=== PATIENT | female | born 1970 | race Caucasian/White ===

== ENCOUNTER 2019-02-28 22:34 | Inpatient (IN) | payer MEDICAID ==
[~2019-02-28] VITALS: Ht 165.1 cm; Wt 49.5 kg
[2019-02-28 22:38] VITALS: Ht 165.1 cm; Wt 49.5 kg
--- NOTE | 2019-02-28 22:57 | NUR ---
PATIENT PRESENTS TO THE ED WITH C/O OF ABDOMINAL PAIN THAT STARTED ABOUT 3 HOURS AGO. PATIENT IS A/O AND STATES SHE HAS BEEN CONSTIPATED UNTIL NOW. PATIENT HAS HAD VOMITING SINCE PAIN STARTED AND CLAIMS SHE HAS A HX OF PANCREATITUS. PATIENT DENIES ALCOHOL CONSUMPTION. BREATHING EVEN AND UNLABORED. PT PLACED ON MONITORS FOR FUTHER EVALUTION.
--- NOTE | 2019-02-28 23:28 | NUR ---
MEDICATED PER MD ORDERS. LAB AND XRAY BEDSIDE.
[2019-02-28 23:38] LABS: PLATELET COUNT 355 x10^3mcL (130-400); RED CELL DISTRIBUTION WIDTH 13.5 % (11.5-14.5)
--- NOTE | 2019-02-28 23:43 | NUR ---
EMT AT BEDSIDE FOR EKG
[2019-02-28 23:51] LABS: ALBUMIN 4.3 g/dL (3.4-5.0); ALKALINE PHOSPHATASE 298 U/L (46-116); ALT/SGPT 40 U/L (14-59); AST/SGOT 20 U/L (15-37); BILIRUBIN TOTAL 0.5 mg/dL (0.20-1.00); CALCIUM 11.3 mg/dL (8.5-10.1); CHLORIDE SERUM 98 mmol/L (98-107); CREATININE SERUM 1.1 mg/dL (0.6-1.0); GFR1 56 mL/min; GLUCOSE SERUM 207 mg/dL (74-106); LIPASE 754 IU/L (73-393); SODIUM SERUM 139 mmol/L (136-145)
[2019-02-28 23:52] LABS: POTASSIUM SERUM 2.8 mmol/L (3.5-5.1)
[2019-02-28 23:59] LABS: BAND NEUTROPHIL 10 % (0-10); SEGMENTED NEUTROPHILS 70 % (37-75)
--- NOTE | 2019-02-28 23:59 | NUR ---
PT MEDICATED PER ORDER. PT VERBALIZED UNDERSTANDING OF MEDICATION TEACHING. SEE EMAR FOR DETAILS.
[2019-03-01] LABS: rbc morphology (normal/abnorm) NORMAL (NORMAL)
--- NOTE | 2019-03-01 01:06 | NUR ---
MEDICATED PER MED ORDERS. WILL CONTINUE TO MONITOR.
--- NOTE | 2019-03-01 02:15 | NUR ---
PATIENT HAD BM ON GURNEY- CLEANED PATIENT UP AND PLACED BACK COMFORTABLY ON GURNEY- BREATHING EVEN AND UNLABORED. NO OTHER S/S OF DISTRESS NOTED AT THIS TIME. WILL CONTINUE TO MONITOR.
--- NOTE | 2019-03-01 03:37 | NUR ---
TOOK PATIENT TO BATHROOM TO OBTAIN URINE SPECIMAN. PATIENT UNABLE TO PROVIDE ONE. [facility]
[2019-03-01 04:42] LABS: MAGNESIUM 1.8 mg/dL (1.8-2.4); PHOSPHOROUS 1.2 mg/dL (2.5-4.9)
[2019-03-01 04:44] LABS: CHOLESTEROL/HDL RATIO 10.1
--- NOTE | 2019-03-01 04:45 | NUR ---
PROVIDED REPORT TO ASIF JOHNGRAIN ELEVATOR WORKER FOR FURTHER CARE OF PATIENT.
[2019-03-01 04:51] LABS: T3 TOTAL 1.55 ng/mL
[2019-03-01 04:59] LABS: FREE THYROXINE INDEX 2.8 ug/dL (1.4-4.5); T4(THYROXINE) 8.9 ug/dL (4.7-13.3)
--- NOTE | 2019-03-01 05:26 | NUR ---
PT ARRIVED TO FLOOR VIA WHEELCHAIR ACCOMPANIED BY ER NURSE, PT A/O X4, PERIPHERAL PULSES PALPABLE, NO EDEMA, LUNG SOUNDS CTA, NO SOB AT THIS TIME, BOWEL SOUNDS HYPOACTIVE, ABD PAIN RATED 8/10 PRESENT AT THIS TIME, PT VOIDS FREELY, CAN AMBULATE, HAS MINOR GENERALIZED WEAKNESS DUE TO PAIN, SKIN INTACT, IV 20 G RIGHT HAND INFUSING NS AT 100 ML/HOUR, SAFETY PRECAUTIONS IN PLACE WILL CONTINUE TO MONITOR
[2019-03-01 05:31] VITALS: BP 155/76
--- NOTE | 2019-03-01 06:17 | NUR ---
PT HAD ORDER FOR FLAGYL AT [address] SAGE, PT STILL HAS K RIDER INFUSING FROM ER, DR SAGE CONTACTED AND SAID IT WAS OK TO HOLD FLAGYL UNTIL K RIDER IS COMPLETE
[2019-03-01 07:11] LABS: CARBON DIOXIDE 23.4 mmol/L (21-32); CHLORIDE SERUM 102 mmol/L (98-107); CREATININE SERUM 0.8 mg/dL (0.6-1.0); GFR1 > 60 mL/min; GLUCOSE SERUM 229 mg/dL (74-106); POTASSIUM SERUM 3.8 mmol/L (3.5-5.1); SODIUM SERUM 136 mmol/L (136-145)
--- NOTE | 2019-03-01 07:16 | NUR ---
PT WAS STABLE THROUGH THE NIGHT DURING CARE, PT HAD NO ACUTE DISTRESS, SOB, OR CHEST PAIN, SAFETY PRECAUTIONS IN PLACE, ENDORSED TO DAY SHIFT RN
--- NOTE | 2019-03-01 07:25 | NUR ---
RECEIVED PT. IN BED A/A/O X3. NO SOB, NO N/V NOTED. PT. DENIES ANY PAIN AT THIS TIME. NS RUNNING AT 100 CC/HR VIA IV SITE AT R WRIST. BED IN LOW POS., CALL LIGHT WITHIN REACH. SIDE RAILS UP X3.
[2019-03-01 07:42] LABS: BASOPHIL % 0.1 % (0-2); PLATELET COUNT 162 x10^3mcL (130-400); RED CELL DISTRIBUTION WIDTH 13.6 % (11.5-14.5)
[2019-03-01 10:14] VITALS: BP 109/56
--- NOTE | 2019-03-01 17:30 | NUR ---
URINE COLLECTED AND SENT TO LAB FOR UA AND UDS.
[2019-03-01 17:37] LABS: microscopic required? NO
[2019-03-01 17:47] LABS: UA SPECIFIC GRAVITY 1.015 (1.005-1.035); urine erythrocyte NEGATIVE (NEGATIVE)
[2019-03-01 18:05] VITALS: BP 142/71
--- NOTE | 2019-03-01 18:12 | NUR ---
REMAINS IN STABLE CONDITION AT THIS TIME. NO N/V OR ABD. PAIN NOTED THROUGHOUT THE ENTIRE SHIFT.
[2019-03-01 18:46] LABS: AMPHETAMINE QUAL UR NONE DETECTED (See below)
--- NOTE | 2019-03-01 19:59 | NUR ---
RECEIVED PATIENT IN BED AWAKE, ALERT AND ORIENTED WITH NO SIGN OF ACUTE DISTRESS. BREATHING EASYA ND NONLABOR SATTING AT 98% RA. MED/SURG PATIENT, NO TELE. ABDOMEN SOFT AND NONTENDER WITH HYPOACTIVE BS. IV TO RH INTACT AND INFUSING WELL. WILL CONTINUE TO MONITOR. CALL LIGHT WITHIN REACH.
[2019-03-01 21:45] VITALS: BP 145/77
--- NOTE | 2019-03-02 01:21 | NUR ---
APPEARS SLEEPING THIS TIME BREATHING EASY AND NONLABOR. WILL CONTINUE TO MONITOR.
--- NOTE | 2019-03-02 05:12 | NUR ---
SLEPT AT LONG INTERVALS, DENIES PAIN AND DISCOMFORT. ALL NEEDS ATTENDED.
[2019-03-02 05:48] VITALS: BP 144/64
--- NOTE | 2019-03-02 07:19 | NUR ---
RECEIVED AWAKE, ALERT AND ORIENTED,. IN NO RESP. DISTRESS. VS WNL. NO C/O PAIN OR DISCOMFORT AT THIS TIME. IVF INFUSING WELL AND SITE CLEAR. CALL LIGHT WITHIN REACH. WILL CONTINUE WITH PLAN OF CARE.
[2019-03-02 09:11] LABS: BASOPHIL % 0.3 % (0-2); PLATELET COUNT 181 x10^3mcL (130-400); RED CELL DISTRIBUTION WIDTH 13.6 % (11.5-14.5)
[2019-03-02 09:13] LABS: CALCIUM 9.2 mg/dL (8.5-10.1); CARBON DIOXIDE 25.4 mmol/L (21-32); CHLORIDE SERUM 109 mmol/L (98-107); CREATININE SERUM 0.6 mg/dL (0.6-1.0); GFR1 > 60 mL/min; GLUCOSE SERUM 128 mg/dL (74-106); LIPASE 235 IU/L (73-393); POTASSIUM SERUM 3.7 mmol/L (3.5-5.1); SODIUM SERUM 143 mmol/L (136-145)
[2019-03-02 10:04] VITALS: BP 141/70
[2019-03-02] MEDS ORDERED: CIPRO500 MG PO (12:12)
[2019-03-02] MEDS ORDERED: FLA500 PO (12:14)
[2019-03-02 14:14] VITALS: BP 141/70
--- NOTE | 2019-03-02 16:39 | NUR ---
PT WILL BE DC;D HOME THIS PM. DC INSTRUCTIONS REVIEWED WITH PT. RX GIVEN. HL REMOVED AND SITE/CATH INTACT. PT GETTING READY TO LEAVE. WAITING FOR RIDE HOME.
== END 2019-03-02 17:11 | disposition home or self-care (01) | DRG 249 ==
LOC: ED 22:34 → MU 03-01 03:05
PROVIDERS: Emergency Medicine; General Practice; ADMIT Family Medicine
DX: K52.9 Noninfective gastroenteritis and colitis, unspecified (principal); N17.0 Acute kidney failure with tubular necrosis; E87.2 Acidosis; E83.39 Other disorders of phosphorus metabolism; D72.829 Elevated white blood cell count, unspecified; E11.9 Type 2 diabetes mellitus without complications; E78.5 Hyperlipidemia, unspecified; E87.6 Hypokalemia
CPT/HCPCS: 82962; 83880; 84439; G0480; J1885; J1956; J2270; J2543; J2765; J3010; J3475; J3480; J3490; J7030; J7040; Q0092

== ENCOUNTER 2019-07-06 13:16 | Emergency (ER) | payer OTHER ==
[~2019-07-06] VITALS: Ht 165.1 cm; Wt 49.9 kg
[~2019-07-06 13:16] MED LIST: CIPRO500 MG PO; FLA500 PO
[2019-07-06 13:33] VITALS: BP 157/53; Ht 165.1 cm; Wt 49.9 kg
== END 2019-07-06 14:10 | disposition left against medical advice (07) ==
LOC: ED 13:16
DX: Z53.21 Procedure and treatment not carried out due to patient leaving prior to being seen by health care provider (principal)